=== PATIENT | male | born 1955 | race Caucasian/White ===

== ENCOUNTER 2020-05-23 00:58 | Day surgery (SDC) | payer BC ==
[~2020-05-23 00:58] MED LIST: CEPH500 PO; HYDACE5 PO; RXHYDACE PO; SULTRIDS PO
== END 2020-05-23 23:15 | disposition home or self-care (01) ==
LOC: WOUND 00:58
DX: I87.2 Venous insufficiency (chronic) (peripheral) (principal); S81.802A Unspecified open wound, left lower leg, initial encounter; X58.XXXA Exposure to other specified factors, initial encounter
CPT/HCPCS: G0463

== ENCOUNTER 2020-05-29 00:11 | Day surgery (SDC) | payer BC | END 2020-05-29 23:07 | disposition home or self-care (01) | LOC: WOUND 00:11 | DX: I96 Gangrene, not elsewhere classified (principal); L97.822 Non-pressure chronic ulcer of other part of left lower leg with fat layer exposed; I10 Essential (primary) hypertension; I87.2 Venous insufficiency (chronic) (peripheral); Z79.899 Other long term (current) drug therapy ==

== ENCOUNTER 2020-06-10 00:28 | Day surgery (SDC) | payer BC | END 2020-06-10 22:59 | disposition home or self-care (01) | LOC: WOUND 00:28 | DX: I96 Gangrene, not elsewhere classified (principal); L97.822 Non-pressure chronic ulcer of other part of left lower leg with fat layer exposed; L03.116 Cellulitis of left lower limb; I10 Essential (primary) hypertension; I87.2 Venous insufficiency (chronic) (peripheral) | CPT/HCPCS: 87070; 87075; 87077; 87147; 87186; 87205; G0463 ==

== ENCOUNTER 2020-06-26 00:11 | Day surgery (SDC) | payer BC | END 2020-06-26 23:59 | disposition home or self-care (01) | LOC: WOUND 00:11 | DX: S81.802D Unspecified open wound, left lower leg, subsequent encounter (principal); X58.XXXD Exposure to other specified factors, subsequent encounter; L97.822 Non-pressure chronic ulcer of other part of left lower leg with fat layer exposed; L03.116 Cellulitis of left lower limb; I87.2 Venous insufficiency (chronic) (peripheral); I73.9 Peripheral vascular disease, unspecified | CPT/HCPCS: A9270 ==

== ENCOUNTER 2020-07-10 00:19 | Day surgery (SDC) | payer BC | END 2020-07-10 23:35 | disposition home or self-care (01) | LOC: WOUND 00:19 | DX: I87.2 Venous insufficiency (chronic) (peripheral) (principal); I73.9 Peripheral vascular disease, unspecified; L03.115 Cellulitis of right lower limb; S81.802D Unspecified open wound, left lower leg, subsequent encounter; X58.XXXD Exposure to other specified factors, subsequent encounter | CPT/HCPCS: A9270 ==

== ENCOUNTER 2020-07-24 00:25 | Day surgery (SDC) | payer BC | END 2020-07-24 22:52 | disposition home or self-care (01) | LOC: WOUND 00:25 | DX: L97.822 Non-pressure chronic ulcer of other part of left lower leg with fat layer exposed (principal); I87.2 Venous insufficiency (chronic) (peripheral); I73.9 Peripheral vascular disease, unspecified; Z87.891 Personal history of nicotine dependence | CPT/HCPCS: A9270 ==

== ENCOUNTER 2022-05-16 14:31 | Emergency (ER) | payer BC, OTHER ==
[~2022-05-16] VITALS: Ht 182.9 cm; Wt 81.7 kg
== END 2022-05-16 16:27 | disposition left against medical advice (07) ==
LOC: ER 14:31
DX: L29.9 Pruritus, unspecified (principal); Z53.21 Procedure and treatment not carried out due to patient leaving prior to being seen by health care provider
CPT/HCPCS: 99281

== ENCOUNTER 2025-02-04 10:19 | Emergency (ER) | payer OTHER ==
[~2025-02-04] VITALS: Ht 182.9 cm; Wt 88.5 kg
[2025-02-04 10:28] VITALS: BP 125/101
[2025-02-04] MEDS ORDERED: CEPH500 PO (11:35)
== END 2025-02-04 11:51 | disposition home or self-care (01) ==
LOC: ER 10:19
DX: L03.115 Cellulitis of right lower limb (principal); Z79.899 Other long term (current) drug therapy
CPT/HCPCS: 73562-RT; 99283-25; A9270